=== PATIENT | male | born 1955 | race Caucasian/White ===

== ENCOUNTER 2016-07-12 21:30 | Emergency (ER) | payer OTHER ==
[2016-07-12 23:16] LABS: BUN/CREATININE RATIO 14 (0-10)
[2016-07-12 23:24] LABS: HEMOGLOBIN 11.2 gm/dl (14.0-17.5); RED BLOOD COUNT 4.03 M/UL (4.20-5.50); WHITE BLOOD COUNT 7.6 K/UL (4.5-11.0)
== END 2016-07-13 05:36 ==
LOC: ER1 21:30
PROVIDERS: Student in an Organized Health Care Education/Training Program
DX: K52.9 Noninfective gastroenteritis and colitis, unspecified (principal); K21.9 Gastro-esophageal reflux disease without esophagitis; C22.9 Malignant neoplasm of liver, not specified as primary or secondary
CPT/HCPCS: 36415; 70450; 71010; 80053; 82140; 82550; 82553; 83605; 83690; 83874; 83880; 84443; 84484; 85025; 85610; 85730; 87040; 93005; 96361; 96374; 99285; J7050; Q9963